=== PATIENT | female | born 1985 | race Caucasian/White ===

== ENCOUNTER 2017-10-10 04:19 | Emergency (ER) | END 2017-10-10 05:59 | disposition home or self-care (01) ==

== ENCOUNTER 2019-02-27 08:09 | Emergency (ER) | payer MEDICAID ==
[~2019-02-27] VITALS: Ht 149.9 cm; Wt 115.9 kg
[~2019-02-27 08:09] MED LIST: DOCU-144 PO; FER325 PO; IBUP-1542 PO; LOPE2CAP PO; ONDA4TAB14 PO; PRENAT PO
[2019-02-27 08:14] VITALS: Ht 149.9 cm; Wt 115.9 kg
[2019-02-27] MEDS ORDERED: SOD CHLORIDE 0.9% 1,000 ML IV STA (08:50)
[2019-02-27] MEDS ORDERED: ONDANSETRON 4 MG INJ IV STA (08:50)
[2019-02-27] MEDS ORDERED: morphine 4 MG/ML VIAL IV STA (08:50)
[2019-02-27] MEDS ORDERED: ASPIRIN 325 MG TAB PO STA (08:50)
--- NOTE | 2019-02-27 08:56 | ERD ---
ER Documentation Chief Complaint Chief Complaint PRESSURE LIKE CHEST PAIN RADAITES TO THE NECK; SHOULDERS SINCE YESTERDAY HPI This is a very pleasant 33-year-old female with no past medical history the presents to the emergency department complaining of pleuritic chest pain. She indicates that the pain radiates to her left neck and back. She indicates that the pain began yesterday evening. The pain is worse when she takes in a deep breath. She denies any recent travel or prolonged immobilization. She is not on oral contraceptive pills. She denies any calf tenderness or swelling. She has no associated symptoms of nausea or vomiting but does feel dizzy. She has had no syncope or near syncope episode. She denies any similar symptoms in the past. ROS All systems reviewed and are negative except as per history of present illness. Medications Home Meds Active Scripts Ibuprofen* (Motrin*) 800 Mg Tab, 800 MG PO Q6H PRN for PAIN AND OR ELEVATED TEMP, #30 TAB Prov:MIC LARKIN MD 02/27/19 Cephalexin* (Keflex*) 500 Mg Capsule, 500 MG PO QID for 10 Days, CAP Prov:MIC LARKIN MD 02/27/19 Ferrous Sulfate* (Ferrous Sulfate*) 325 Mg Tabec, 325 MG PO BID, #60 TAB Prov:SWATHI MARTÍNEZ NP 10/10/17 Docusate Sodium* (Colace*) 100 Mg Capsule, 100 MG PO TID, #30 CAP Prov:SWATHI MARTÍNEZ NP 10/10/17 Ibuprofen* (Motrin*) 600 Mg Tab, 600 MG PO Q6H PRN for PAIN AND OR ELEVATED TEMP, #30 TAB Prov:SWATHI MARTÍNEZ NP 10/10/17 Ondansetron (Ondansetron Odt) 4 Mg Tab.rapdis, 4 MG PO Q6H PRN for NAUSEA AND/OR VOMITING, #20 TAB Prov:JUDY BARROW PA-C 06/20/17 Loperamide Hcl* (Imodium*) 2 Mg Capsule, 2 MG PO .AFTER EA LOOSE BM PRN for DIARRHEA, #10 TAB Prov:JUDY BARROW PA-C 06/20/17 Reported Medications Ferrous Sulfate* (Ferrous Sulfate*) 325 Mg Tabec, 325 MG PO DAILY, TAB 12/31/15 Multivit/Min/Fol Ac/Iron/Pren* ( S*) 1 Tab Tab, 1 TAB PO DAILY, TAB 12/31/15 Allergies Allergies: Coded Allergies: No Known Allergy (Unverified , 01/08/16) PMhx/Soc Hx Miscellaneous Medical Probl: Yes (Heartburn that began with .) Hx Alcohol Use: No Hx Substance Use: No Hx Tobacco Use: No Physical Exam Vitals Vital Signs Date Temp Pulse Resp B/P (MAP) Pulse Ox O2 O2 Flow FiO2 Time Delivery Rate 02/27/19 98.5 103 23 175/72 99 08:14 (106) Physical Exam Constitutional:Well-developed. Well-nourished. HEENT:Normocephalic. Atraumatic.Pupils were equal round reactive to light. Moist mucous membranes.No tonsillar exudates. Neck: No nuchal rigidity. No lymphadenopathy. No posterior cervical spine tenderness or step-offs. Respiratory: Not using accessory muscles of respiration.Lungs were clear to auscultation bilaterally. No rhonchi. No rales. No wheezing. Cardiovascular: Regular rate regular rhythm.No murmurs. No rubs were appreciated.S1, S2 normal. Distal pulses are palpable 2+ bilaterally. Reproducible chest wall tenderness bilaterally. No crepitus no ecchymosis no flail chest GI: Abdomen was obese so exam is limited due to body habitus. Nontender. Non Distended. No pulsatile abdominal masses or bruits. No rebound. No guarding. Bowel sounds were present and normal. Muscle skeletal: Full range of motion of both the upper and lower extremities bi laterally.Normal muscle tone.No assymetrical calf tenderness or swelling. Skin: No petechia, no purpura. No lesions on the palms or the soles of the feet. No maculopapular rash. NEURO: Patient was alert, awake, orientated x3.No facial droop. Gait observed and normal with no ataxia.Speech had regular rate and rhythm. No focal neurological deficits. Result Diagram: 02/27/1959 02/27/1959 Results 24 hrs Laboratory Tests Test 02/27/19 08:59 02/27/19 09:15 02/27/19 09:31 White Blood Count 9.9 10^3/ul Red Blood Count 4.77 10^6/ul Hemoglobin 13.1 g/dl Hematocrit 39.1 % Mean Corpuscular Volume 82.0 fl Mean Corpuscular Hemoglobin 27.5 pg Mean Corpuscular 33.5 g/dl Hemoglobin Concent Red Cell Distribution Width 13.1 % Platelet Count 261 10^3/UL Mean Platelet Volume 10.1 fl Immature Granulocytes % 1.500 % Neutrophils % 56.9 % Lymphocytes % 31.1 % Monocytes % 7.4 % Eosinophils % 2.4 % Basophils % 0.7 % Nucleated Red Blood Cells % 0.0 /100WBC Immature Granulocytes # 0.150 10^3/ul Neutrophils # 5.6 10^3/ul Lymphocytes # 3.1 10^3/ul Monocytes # 0.7 10^3/ul Eosinophils # 0.2 10^3/ul Basophils # 0.1 10^3/ul Nucleated Red Blood Cells # 0.0 10^3/ul Prothrombin Time 12.1 Sec Prothrombin Time Ratio 0.9 INR International 0.89 Normalized Ratio Activated Partial Thromboplast 27.0 Sec Time D-Dimer 414.98 ng/ml D-Dimer Comment Sodium Level 136 mmol/L Potassium Level 3.8 mmol/L Chloride Level 102 mmol/L Carbon Dioxide Level 24 mmol/L Anion Gap 10 Blood Urea Nitrogen 10 mg/dl Creatinine 0.52 mg/dl Est Glomerular Filtrat > 60 mL/min Rate mL/min Glucose Level 259 mg/dl Calcium Level 8.5 mg/dl Total Bilirubin 0.5 mg/dl Direct Bilirubin 0.00 mg/dl Indirect Bilirubin 0.5 mg/dl Aspartate Amino 18 IU/L Transf (AST/SGOT) Alanine 29 IU/L Aminotransferase (ALT/SGPT) Alkaline Phosphatase 162 IU/L Creatine Kinase 140 IU/L Creatine Kinase Index 0.6 Creatinine Kinase MB (Mass) 0.83 ng/ml Troponin I < 0.012 ng/ml B-Type Natriuretic Peptide 17 PG/ML Total Protein 7.1 g/dl Albumin 3.8 g/dl Globulin 3.30 g/dl Albumin/Globulin Ratio 1.15 Urine Color YELLOW Urine Clarity SLIGHTLY CLOUDY Urine pH 6.0 Urine Specific P[place]ree 1.018 Urine Ketones TRACE mg/dL Urine Nitrite POSITIVE mg/dL Urine Bilirubin NEGATIVE mg/dL Urine Urobilinogen NEGATIVE mg/dL Urine Leukocyte Esterase 2+ Lico/ul Urine Microscopic RBC 9 /HPF Urine Microscopic WBC 69 /HPF Urine Bacteria FEW /HPF Urine Hemoglobin 2+ mg/dL Urine Glucose 3+ mg/dL Urine Total Protein NEGATIVE mg/dl POC Beta HCG, Qualitative NEGATIVE Current Medications Medications Dose Sig/Edward Start Time Status Last (Trade) Ordered Route PRN Stop Time Admin Dose Reason Admin Sodium 1,000 ml @ Q1H STAT 02/27/19 DC 02/27/19 Chloride 1,000 mls/hr IV 08:50 09:27 02/27/19 09:49 Aspirin 325 mg ONCE STAT 02/27/19 DC 02/27/19 (Aspirin) PO 08:50 09:27 02/27/19 08:51 Morphine 4 mg ONCE STAT 02/27/19 DC 02/27/19 Sulfate IV 08:50 09:27 (morphine) 02/27/19 08:51 Ondansetron 4 mg ONCE STAT 02/27/19 DC 02/27/19 HCl (Zofran IV 08:50 09:27 Inj) 02/27/19 08:51 Ketorolac 30 mg ONCE STAT 02/27/19 DC Tromethamine IV 10:04 (Toradol) 02/27/19 10:09 Ceftriaxone 50 ml @ ONCE ONCE 02/27/19 Sodium 100 mls/hr IVPB 10:30 02/27/19 10:59 Procedures/MDM The patient presented to the emergency department complaining of chest pain. My clinical evaluation and workup was to distinguish minor causes of chest pain from acute life threatening cardiopulmonary causes such as myocardial infarction, pulmonary embolism, aortic dissection, esophageal rupture, cardiac tamponade, The patient was placed on a ekg monitor, continuous pulse oximetry and IV access established by nursing staff. 12 Lead EKG tracing ordered and reviewed by myself showed: Sinus tachycardia 101 bpm and no arrhythmia. CA interval normal. QRS duration normal. No ST segment elevation No ST segment depression. No changes consistent with acute ischemia. The patient was low pretest probability according to the Wells criteria. Therefore I obtained a d-dimer. This was not elevated. I did feel the patient's symptoms are likely result of pleurisy. The patient had also complained of frequency urgency and dysuria after initial evaluation. Therefore obtained a urinalysis. This was positive for UTI. She was given IV ceftriaxone and will be sent home flex. She also be given anti- inflammatories to treat the pleurisy. The patients chest pain was reproduced by palpation and horizontal flexion of the arms. It was my clinical impression that the pain was a result of inflammation of the skin and subcutaneous structures of the chest wall versus myocardial ischemia. I felt the patient had low-risk chest pain and could therefore be safely discharged with close follow-up. Departure Diagnosis: Primary Impression: Pleurisy Additional Impression: Urinary tract infection Urinary tract infection type: acute cystitis Hematuria presence: without hematuria Qualified Codes: N30.00 - Acute cystitis without hematuria Condition: MIC Owen MD February 27, 2019 08:56
[2019-02-27] MEDS ORDERED: KETOROLAC 30 MG INJ IV STA (10:04)
[2019-02-27] MEDS ORDERED: CEPH-443 PO (10:09)
[2019-02-27] MEDS ORDERED: IBUP800T48 PO (10:09)
[2019-02-27] MEDS ORDERED: CEFTRIAXONE 1 GM/50 ML (PMX) 50 ML IVPB ONE (10:30)
[2019-02-27 11:00] VITALS: BP 108/55; PULSE 90; RESP 20
== END 2019-02-27 11:18 | disposition home or self-care (01) ==
LOC: E/R 08:09
DX: R09.1 Pleurisy (principal); N30.00 Acute cystitis without hematuria
CPT/HCPCS: 71045; 80053; 81001; 81025; 82550; 82553; 83880; 84484; 85025; 85378; 85610; 85730; 93005; 96374; 96375; J0696; J1885; J2270; J2405; J7030; Z7502; Z7610